=== PATIENT | male | born 1960 | race Caucasian/White ===

== ENCOUNTER 2016-08-03 05:12 | Emergency (ER) | payer OTHER ==
[2016-08-03 05:59] LABS: ER CBC TAT 0 Hrs 07 Mins; HEMATOCRIT 37.7 % (40.0-51.0); HEMOGLOBIN 11.9 g/dL (13.6-17.8); MANUAL DIFF YES %; MEAN CORPUS HGB CONC 31.6 g/dL (32.0-36.0); MEAN CORPUSCULAR HEMOGLOB 24.4 pg (26.0-34.0); MEAN CORPUSCULAR VOLUME 77.3 fL (80-100); MEAN PLATELET VOLUME 9.1 fL (9.2-13.0); PLATELET COUNT 561 10/3/uL (150-400); RBC DISTRIBUTION WIDTH 13.9 % (12.0-16.0); RED CELL COUNT 4.88 10/6/uL (4.7-6.1); WHITE BLOOD CELLS 19.9 10/3/uL (4.5-10.5)
[2016-08-03 06:06] LABS: INTERNATIONAL NORMAL RATI 0.9 UNITS (-); PROTIME (NOT ORD) 12.5 SEC (12.0-14.5)
[2016-08-03 06:13] LABS: A/G RATIO 0.7 (0.7-1.9); ALBUMIN 3.3 G/DL (3.5-5.0); ALKALINE PHOSPHATASE 120 U/L (45-117); BUN (BLOOD UREA NITROGEN) 11 MG/DL (6-23); CALCIUM, SERUM 10.1 MG/DL (8.5-10.4); CHLORIDE, SERUM 97 MMOL/L (96-112); CO2 (CARBON DIOXIDE) 31 MMOL/L (24-34); GFR AFRICAN AMERICAN 110 ML/MIN (>=60); GFR NON AFRICAN AMERICAN 95 ML/MIN (>=60); GLOBULIN 4.8 G/DL (2.5-4.1); GLUCOSE, SERUM 307 MG/DL (60-99); POTASSIUM, SERUM 3.9 MMOL/L (3.5-5.3); SGOT(AST) 7 U/L (5-40); SGPT(ALT) 15 U/L (5-65); SODIUM, SERUM 136 MMOL/L (135-148); TOTAL BILIRUBIN 0.3 MG/DL (0-1.2); TOTAL PROTEIN 8.1 G/DL (6.0-8.5)
[2016-08-03 06:29] LABS: ER DIFF TAT 0 Hrs 37 Mins; LYMPHOCYTES 12 %; LYMPHOCYTES ABSOLUTE (CALC) 2.39 10/3/uL (0.67-4.30); MONOCYTES 6 %; MONOCYTES ABSOLUTE (CALC) 1.19 10/3/uL (0.21-1.20); NEUTROPHILS ABSOLUTE (CALC) 16.32 10/3/uL (2.02-8.40); SEGMENTED NEUTROPHIL (0) 82 %; TOTAL NUCLEATED CELLS 100
[2016-08-03 06:30] LABS: HYPOCHROMIA 1+ (3-10/OIF) (0-2/OIF); PLATELET ESTIMATE SLT INC (ADEQUATE)
[2016-08-03 08:52] LABS: ASCORBIC ACID (UR NOT ORDER) 40 (NEG); BILIRUBIN, URINE NEGATIVE (NEG); KETONE, URINE 20 MG/DL (NEG); LEUKOCYTE ESTERASE(NOT OR NEG (NEG); NITRITE (URINE) NEG (NEG); WBC (NOT ORDERED) (RFLEX) < 1 (0-5)
[2016-08-03 08:53] LABS: ER URINALYSIS TAT 0 Hrs 38 Mins
== END 2016-08-03 10:24 | disposition home or self-care (01) ==
LOC: ER 05:12
PROVIDERS: Nurse Practitioner; Nurse Practitioner Acute Care
DX: D72.829 Elevated white blood cell count, unspecified (principal); I10 Essential (primary) hypertension; F32.9 Major depressive disorder, single episode, unspecified; E11.9 Type 2 diabetes mellitus without complications; Z86.19 Personal history of other infectious and parasitic diseases; Z88.5 Allergy status to narcotic agent; Z88.6 Allergy status to analgesic agent; Z88.8 Allergy status to other drugs, medicaments and biological substances
CPT/HCPCS: 36415; 71010; 74176; 80053; 81001; 83605; 85025; 85610; 85730; 86850; 86900; 86901; 87040; 93005; 96374; 99285; C9113; J2405